=== PATIENT | male | born 1980 | race Caucasian/White ===

== ENCOUNTER 2016-09-07 13:16 | Emergency (ER) | payer MEDICAID, OTHER ==
[~2016-09-07] VITALS: Ht 180.3 cm; Wt 75.7 kg
--- OUTSIDE RECORDS SUMMARY | 2016-09-07 13:22 | XMS REPORT ---
Author Author ANA KNIGHT Organization [employer] Address Unknown Phone Unavailable Care Team Providers Care Ese Teacher Name Role Phone ANA KNIGHT CP Unavailable Allergies, Adverse Reactions, Alerts Substance Reaction Event Type N.K.D.A. Info Not Available Non Drug Allergy Problems Problem Type Condition Code Onset Dates Condition Status Assessment Poison mer L23.7 Active Medications Medication Code System Code Instructions Start Date End Date Status Dosage Klonopin [facility] [address]-60 1 MG Orally Twice a day 1 tablet Lamictal [facility] [address]-08 150 MG Orally Twice a day 1 tablet Latuda [facility] [address]-02 80 MG Orally Once a day 1 tablet with food Procedures Procedure Coding System Code Date DEPO MEDROL 40 MG/ML CPT-4 J1030 November 09, 2015 THER/PROPH/DIAG INJ, SC/IM CPT-4 06857 November 09, 2015 Office Visit, Est Pt., Level 3 CPT-4 93640 November 09, 2015 Vital Signs Date/Time: November 09, 2015 Cardiac Monitoring Heart Rate 80 bpm Temperature 97.3 F Weight 171.8 lbs Blood Pressure Diastolic 68 mmHg Blood Pressure Systolic 110 mmHg Results No Known Results Summary Purpose [employer] Submission
[2016-09-07] MEDS ORDERED: lamictal (14:15)
[2016-09-07] MEDS ORDERED: klonopin (14:15)
[2016-09-07] MEDS ORDERED: [UNRECOGNIZED DRUG - OTHER] (14:21)
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
[2016-09-07 14:50] LABS: BASOPHILS % (AUTO) 0 % (0-10); EOSINOPHILS # (AUTO) 0.3 10^3/uL (0.0-0.3); EOSINOPHILS % (AUTO) 3 % (0-10); LYMPHOCYTES # (AUTO) 1.8 X 10^3 (1.0-4.0); LYMPHOCYTES % (AUTO) 20 % (12-44); MEAN CORPUSCULAR HEMOGLOBIN 30 PG (25-34); MEAN CORPUSCULAR HGB CONC 33 G/DL (32-36); MEAN CORPUSCULAR VOLUME 91 FL (80-99); MEAN PLATELET VOLUME 10.6 FL (7.4-10.4); MONOCYTES # (AUTO) 0.9 X 10^3 (0.0-1.0); MONOCYTES % (AUTO) 10 % (0-12); NEUTROPHILS # (AUTO) 6.3 X 10^3 (1.8-7.8); NEUTROPHILS % (AUTO) 67 % (42-75); PLATELET COUNT 251 10^3/uL (130-400); RED BLOOD COUNT 5.63 10^6/uL (4.35-5.85); RED CELL DISTRIBUTION WIDTH 14.8 % (10.0-14.5); WHITE BLOOD COUNT 9.4 10^3/uL (4.3-11.0)
[2016-09-07 15:02] LABS: ALANINE AMINOTRANSFERASE 29 U/L (0-55); ALBUMIN 4.7 G/DL (3.2-4.5); ANION GAP 11 MMOL/L (5-14); ASPARTATE AMINO TRANSFERASE 23 U/L (5-34); BILIRUBIN,TOTAL 0.5 MG/DL (0.1-1.0); BLOOD UREA NITROGEN 8 MG/DL (7-18); BUN/CREATININE RATIO 9; CALCIUM 9.8 MG/DL (8.5-10.1); CARBON DIOXIDE 24 MMOL/L (21-32); CHLORIDE 105 MMOL/L (98-107); CREATININE SERUM 0.87 MG/DL (0.60-1.30); GFR ESTIMATED > 60; GLUCOSE 107 MG/DL (70-105); POTASSIUM 4.1 MMOL/L (3.6-5.0); SODIUM 140 MMOL/L (135-145); TOTAL PROTEIN 7.5 G/DL (6.4-8.2)
--- NOTE | 2016-09-07 15:08 | Diagnostic Imaging Report ---
INDICATION: Chest pain for the past five days, hurts at night when coughing and sneezing, sharp pain in the right shoulder, pain taking a deep breath. FINDINGS: Frontal and lateral views of the chest demonstrate the lungs to be clear. The heart, mediastinum, pulmonary vascularity, and visualized bony thorax are normal. No pneumothorax or pleural effusion is seen. IMPRESSION: Normal chest. Dictated by: Dictated on workstation # [id number]
[2016-09-07] MEDS ORDERED: PROMETHAZINE/ CODEINE SYRUP 5 ML UDC PO STA (15:32)
[2016-09-07] MEDS ORDERED: IBUPROFEN TABLET 200 MG TAB PO STA (16:11)
[2016-09-07] MEDS ORDERED: GUAI120L56 PO (16:18)
[2016-09-07 16:26] VITALS: BP 119/72
== END 2016-09-07 16:26 | disposition home or self-care (01) ==
LOC: EDUNIT# 13:16 → ER 13:20
DX: R07.81 Pleurodynia (principal); R05 Cough; F17.210 Nicotine dependence, cigarettes, uncomplicated
CPT/HCPCS: 36415; 71020; 80053; 85025

== ENCOUNTER 2020-01-05 09:46 | Emergency (ER) | payer MEDICAID ==
[~2020-01-05] VITALS: Ht 180 cm; Wt 69.0 kg
[~2020-01-05 09:46] MED LIST: ACHYD1T PO; GUAI120L56 PO; IBUP-2473 PO; [UNRECOGNIZED DRUG - OTHER]; klonopin; lamictal
[2020-01-05 10:26] LABS: BILIRUBIN,URINE NEGATIVE (NEGATIVE); CLARITY,URINE CLEAR; COLOR,URINE YELLOW; GLUCOSE, URINE (UA) NEGATIVE (NEGATIVE); KETONES,URINE TRACE (NEGATIVE); LEUKOCYTE ESTERASE ,URINE NEGATIVE (NEGATIVE); NITRITE,URINE NEGATIVE (NEGATIVE); PROTEIN,URINE TRACE (NEGATIVE)
[2020-01-05 10:36] LABS: BACTERIA,URINE NEGATIVE /HPF
[2020-01-05 10:40] LABS: URINE OTHER FEW SPERM /HPF
--- NOTE | 2020-01-05 10:55 | Diagnostic Imaging Report ---
PROCEDURE: US Scrotum. TECHNIQUE: Multiple real-time grayscale images were obtained over the scrotum in various projections bilaterally. INDICATION: Scrotal pain and swelling. FINDINGS: Testicular parenchyma appeared symmetric and normal with normal color Doppler blood flow. The epididymides appeared normal. No evidence for epididymitis, orchitis, torsion or mass. There is no hernia or hydrocele. IMPRESSION: Normal scrotal Doppler and ultrasound exam Dictated by: Dictated on workstation # [id number]
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
[2020-01-05] MEDS ORDERED: cefTRIAXone 1,000 MG/2.86 ml vial (IM ONLY) IM ONE (11:15)
[2020-01-05] MEDS ORDERED: LIDOCAINE 1% INJ 20 ML 20 ML VIAL INJ ONE (11:15)
[2020-01-05] MEDS ORDERED: DOXY100T2 PO (11:55)
[2020-01-05 12:22] VITALS: BP 120/90
== END 2020-01-05 12:21 | disposition home or self-care (01) ==
LOC: EDUNIT# 09:46 → ER 09:48
DX: N45.1 Epididymitis (principal); F41.9 Anxiety disorder, unspecified; F32.9 Major depressive disorder, single episode, unspecified; F17.210 Nicotine dependence, cigarettes, uncomplicated
CPT/HCPCS: 36415; 76870; 81000; 87077; 87088; 87491; 87591; 96372